=== PATIENT | male | born 1970 | race Caucasian/White ===

== ENCOUNTER 2016-02-25 12:43 | Day surgery (SDC) | payer OTHER ==
[~2016-02-25 12:43] MED LIST: CEFAZOLIN 1 GM/D5W RTU 1 GM/50 ML RTUPB IV PRN; CEFAZOLIN INJ 1 GM VIAL ONE; DEXTROSE 5%-1/2 NORMAL SALINE 1,000 ML IV PRN; KETOROLAC TROMETHAMINE 60 MG/2 ML SDV ONE; SUCCINYLCHOLINE CHLORIDE INJ 200 MG/10 ML VIAL ONE
[2016-02-25] MEDS ORDERED: LIDOCAINE 0.5% INJ-PF (5 MG/ML) 50 ML SDV ONE (13:11)
[2016-02-25] MEDS ORDERED: BACITRACIN INJ 50,000 UNIT VIAL ONE (13:12)
[2016-02-25] MEDS ORDERED: BUPIVACAINE HCL 0.25 % INJ/PF (2.5 MG/1 ML) 30 ML VIAL ONE (13:12)
[2016-02-25] MEDS ORDERED: ALBUTEROL SULFATE 0.083% NEB 2.5 MG/3 ML AMPUL NEB ONE (13:16)
[2016-02-25] MEDS ORDERED: MIDAZOLAM 2 MG/2 ML INJ ONE ×2 (13:49→14:42)
[2016-02-25] MEDS ORDERED: RINGERS SOLUTION,LACTATED 1,000 ML IV ONE (14:15)
[2016-02-25] MEDS ORDERED: LIDOCAINE 2% INJ-PF (20 MG/ML) 10 ML AMPUL ONE (14:41)
[2016-02-25] MEDS ORDERED: FENTANYL CITRATE INJ/PF 100 MCG/2 ML AMPUL ONE (14:41)
[2016-02-25] MEDS ORDERED: DEXAMETHASONE SOD PHOSPHATE INJ 4 MG/1 ML VIAL ONE (14:42)
[2016-02-25] MEDS ORDERED: PROPOFOL INJ 200 MG/20 ML VIAL IV ONE (14:42)
[2016-02-25] MEDS ORDERED: MORPHINE SULFATE 10 MG/ML INJ ONE (14:42)
[2016-02-25] MEDS ORDERED: ONDANSETRON HCL INJ/PF 4 MG/2 ML SDV ONE (14:42)
--- NOTE | 2016-02-25 17:13 | PDOC DISCHARGE SUMMARY ---
Discharge Summary (SDC) - Discharge Final Diagnosis: Right inguinal hernia post repair. Date of Surgery: 02/25/16 Discharge Date: 02/25/16 Condition: Good Treatment or Instructions: #1 activities within moderation encouraged. Activities up to the level of walking encouraged. Lifting over 10 pounds. #2 follow up in my office by appointment in about 1 week. Call for appointment. #3 the wounds covered clean and dry until office visit. #4 hold off on school/work until evaluation in office. #5 may shower in 48 hours, keep operated area as dry as possible. #6 discharge from ambulatory to when ASU criteria met. #7 medications per medication reconciliation sheet. #8 Percocet and Toradol prescriptions. Prescriptions: Ketorolac Tromethamine [Toradol 10 mg Tablet] 10 mg PO Q8HP #9 tablet Oxycodone HCl/Acetaminophen [Percocet 5-325 mg Tablet] 1 tab PO ASDIR PRN #15 tab PRN Reason: For Pain Discharge Diet: As Tolerated Respiratory Treatments at Home: Deep Breathing/Coughing Discharge Activity: No Lifting Over 10 Pounds, Walk Frequently Report the Following to Your Physician Immediately: Shortness of Breath, Unusual Bleeding
--- NOTE | 2016-02-25 17:16 | Operative Report ---
Operative Report DATE OF SURGERY: 02/25/16 PREOPERATIVE DIAGNOSIS: #1 symptomatic right inguinal hernia. POSTOPERATIVE DIAGNOSIS: Same as post repair with mesh. Resection lipoma of the cord. OPERATION: Repair of right indirect inguinal hernia with mesh. SURGEON: [facility] NURSE: none TISSUE REMOVED OR ALTERED: Lipoma of the cord COMPLICATIONS: None ESTIMATED BLOOD LOSS: 5 mL. INTRAOPERATIVE FINDINGS: Of an indirect inguinal hernias sac which was nicely reduced within the peritoneal cavity. The sac was substantial and in the cord for about 5 cm. 2 lipoma of the cord presented superiorly and laterally. These were excised facilitating closure. Was maintained using a Prolene hernia system mesh. Overall the procedure well tolerated. PROCEDURE: After obtaining informed consent and going over the procedure with [the patient and his family], he was taken to the operating room, he was anesthetized and intubated. The abdomen was prepped and draped in the usual sterile fashion. After the universal timeout, in which it was verified that the patient received IV antibiotic, the procedure commenced. A transverse incision was made in the right lower abdomen abdominal, groin area , just above the pubic tubercle. 6 cm in length.Local, regional anesthesia was infiltrated, just before incision.. Incision was made with a [15 blade scalpel] . Dissection now proceeded through the subcutaneous tissue down to the external oblique aponeurosis. The external ring was identified and the external oblique opened in the line of its fibers. The inguinal canal was thus displayed. Dissection was facilitated by the use a headlight and using loupe magnification. The spermatic cord was dissected off the pubic tubercle and surrounded with a moist [place] drain, the cremasteric fascia was now incised longitudinally revealing the contents of the spermatic cord. The sac was readily evident and this was grasped with a hemostat. It was now dissected in a retrograde fashion into the retroperitoneal space. It was now reduced within the the preperitoneal space. The preperitoneal space was now developed circumferentially. It easily accommodated a sponge which was removed. Hemostasis was checked for and ensured there in. The space between the external and internal oblique aponeuroses was now developed to accommodate the external portion of the mesh. Having done so a Prolene hernia system mesh was now folded, in the teleradiologist's approved fashion and inserted into the preperitoneal space. The internal portion was deployed flat in the preperitoneal space the external portion was unfolded and tucked beneath the external oblique. Secured with a 0 PDS suture to the internal oblique superiorly, the fascia adjacent to the pubic tubercle medially, inferiorly it was split up to the connector, the the split mesh was now used to surround the spermatic cord. It was reapproximated with a suture of 0 PDS. 0 PDS was now used to approximate the inferior border of the mesh to the shelving edge of Poupart's ligament with a single suture. Laterally the mesh was tucked beneath the external oblique. The external oblique was now reconstituted using a continuous suture of 3-0 PDS. 3-0 PDS interrupted sutures were used to approximate the subcutaneous tissues after removing the [place] drain. The skin was closed using a continuous subcuticular suture of 4-0 Monocryl reinforced with Steri-Strips over benzoin. Copies dictated operative report to Dr. Vivien Ochoa MD.
[2016-02-25] MEDS ORDERED: PROMETHAZINE HCL INJ 25 MG/1 ML VIAL IV PRN (17:19)
[2016-02-25] MEDS ORDERED: FENTANYL CITRATE INJ/PF 100 MCG/2 ML AMPUL IV PRN (17:19)
[2016-02-25] MEDS ORDERED: MORPHINE SULFATE 10 MG/ML INJ IV PRN (17:19)
[2016-02-25] MEDS ORDERED: DIPHENHYDRAMINE HCL 50 MG/ML VIAL IV PRN (17:19)
[2016-02-25] MEDS ORDERED: MEPERIDINE HCL/PF INJ 25 MG/1 ML DISP.SYRIN IV PRN (17:19)
[2016-02-25] MEDS: FENTANYL CITRATE INJ/PF 100 MCG/2 ML AMPUL ONE ×2 (17:40→17:49)
[2016-02-25] MEDS ORDERED: OXYCODONE-ACETAMINOPHEN 5-325 MG TABLET ONE (18:17)
[2016-02-25] MEDS ORDERED: OXYCODONE-ACETAMINOPHEN 5-325 MG TABLET PO ONE (18:30)
[2016-02-25 19:18] VITALS: BP 133/94
== END 2016-02-25 19:17 | disposition home or self-care (01) ==
LOC: OROUT 12:43
PROVIDERS: ATTEND Surgery
PROC: 0YU50JZ Supplement Right Inguinal Region with Synthetic Substitute, Open Approach (ICD-10-PCS; principal; 2016-02-25 13:30)
DX: K40.30 Unilateral inguinal hernia, with obstruction, without gangrene, not specified as recurrent (principal); D17.6 Benign lipomatous neoplasm of spermatic cord; F17.210 Nicotine dependence, cigarettes, uncomplicated
CPT/HCPCS: 88302 ×2; 49505; C1781; J2250; J3490 ×3; J0690; J1100; J1885; J3010; J0330; J2405; J2704; 830; J2270

== ENCOUNTER → 2017-07-17 | Outpatient (CLI) | payer OTHER ==
--- NOTE | 2017-07-17 11:57 | RADIOLOGY REPORT (SQ) ---
EXAM DESCRIPTION: FOOT LEFT COMPLETE COMPLETED DATE/TIME: 07/17/2017 11:27 am REASON FOR STUDY: LEFT FOOT PAIN COMPARISON: None. NUMBER OF VIEWS: Three views. TECHNIQUE: AP, lateral and oblique radiographic images acquired of the left foot. LIMITATIONS: None. FINDINGS: MINERALIZATION: Normal. BONES: No acute fracture or dislocation. No worrisome bone lesions. JOINTS: No effusions. SOFT TISSUES: No soft tissue swelling. No foreign body. OTHER: No other significant finding. IMPRESSION: NEGATIVE STUDY OF THE LEFT FOOT. NO RADIOGRAPHIC EVIDENCE OF ACUTE INJURY. TECHNICAL DOCUMENTATION: JOB ID: [id number] [employer]- All Rights Reserved Reading location - IP/workstation name: [email or web address]
== END ==
LOC: RAD 11:08
PROVIDERS: ATTEND Student in an Organized Health Care Education/Training Program
DX: M79.672 Pain in left foot (principal)

== ENCOUNTER → 2017-12-08 | Outpatient (CLI) | payer OTHER ==
--- NOTE | 2017-12-08 14:35 | RADIOLOGY REPORT (SQ) ---
EXAM DESCRIPTION: T SPINE AP/LAT COMPLETED DATE/TIME: 12/08/2017 2:21 pm REASON FOR STUDY: SCOLIOSIS (M41.9),BACK PAIN (M54.9) M41.9 SCOLIOSIS, UNSPECIFIED M54.9 DORSALGIA , UNSPECIFIED M25.522 PAIN IN LEFT ELBOW COMPARISON: None. NUMBER OF VIEWS: Two views. TECHNIQUE: AP and lateral radiographic images acquired of the thoracic spine. LIMITATIONS: None. FINDINGS: MINERALIZATION: Normal. ALIGNMENT: Normal. No scoliosis. VERTEBRAE: No fracture or bone lesion. Maintained height, normal segmentation. DISCS: No significant loss of height or significant narrowing. No large osteophytes. HARDWARE: None in the spine. MEDIASTINUM AND SOFT TISSUES: Normal heart size and aortic contour. No soft tissue abnormality. VISUALIZED LUNG BATRES: Clear. OTHER: No other significant finding. IMPRESSION: NO SIGNIFICANT RADIOGRAPHIC FINDING IN THE THORACIC SPINE. TECHNICAL DOCUMENTATION: JOB ID: [id number] [employer]- All Rights Reserved Reading location - IP/workstation name: [email or web address]
--- NOTE | 2017-12-08 14:36 | RADIOLOGY REPORT (SQ) ---
EXAM DESCRIPTION: CERV SP 4 OR 5 VIEWS COMPLETED DATE/TIME: 12/08/2017 2:21 pm REASON FOR STUDY: SCOLIOSIS (M41.9),BACK PAIN (M54.9) M41.9 SCOLIOSIS, UNSPECIFIED M54.9 DORSALGIA , UNSPECIFIED M25.522 PAIN IN LEFT ELBOW COMPARISON: None. NUMBER OF VIEWS: Five views. TECHNIQUE: AP, lateral, obliques and odontoid radiographic images acquired of the cervical spine. LIMITATIONS: None. FINDINGS: MINERALIZATION: Normal. ALIGNMENT: There is straightening of the normal cervical lordosis. VERTEBRAE: Vertebral bodies of normal height. DISCS: No significant osteophytes or sclerosis. Disc height maintained. FORAMINA: No osteophytes or foraminal narrowing. LATERAL AND POSTERIOR ELEMENTS: Facets, lateral masses and spinous processes without significant find ings. HARDWARE: None in the spine. SOFT TISSUES: No masses or calcifications. Lung apices clear. OTHER: No other significant finding. IMPRESSION: NO SIGNIFICANT RADIOGRAPHIC FINDING IN THE CERVICAL SPINE. TECHNICAL DOCUMENTATION: JOB ID: [id number] [employer]- All Rights Reserved Reading location - IP/workstation name: [email or web address]
--- NOTE | 2017-12-08 14:40 | RADIOLOGY REPORT (SQ) ---
EXAM DESCRIPTION: ELBOW LEFT OVER 2 VIEWS COMPLETED DATE/TIME: 12/08/2017 2:21 pm REASON FOR STUDY: LEFT ELBOW PAIN (M25.522) M41.9 SCOLIOSIS, UNSPECIFIED M54.9 DORSALGIA, UNSPECIF IED M25.522 PAIN IN LEFT ELBOW COMPARISON: None. NUMBER OF VIEWS: Four views. TECHNIQUE: AP, lateral, and both oblique radiographic images acquired of the left elbow. LIMITATIONS: None. FINDINGS: MINERALIZATION: Normal. BONES: No acute fracture or dislocation. No worrisome bone lesions. JOINT: No effusion. SOFT TISSUES: No soft tissue swelling. No foreign body. OTHER: No other significant finding. IMPRESSION: NEGATIVE STUDY OF THE LEFT ELBOW. NO RADIOGRAPHIC EVIDENCE OF ACUTE INJURY. TECHNICAL DOCUMENTATION: JOB ID: [id number] [employer]- All Rights Reserved Reading location - IP/workstation name: [email or web address]
--- NOTE | 2017-12-08 14:41 | RADIOLOGY REPORT (SQ) ---
EXAM DESCRIPTION: L SPINE WHOLE COMPLETED DATE/TIME: 12/08/2017 2:21 pm REASON FOR STUDY: SCOLIOSIS (M41.9),BACK PAIN (M54.9) M41.9 SCOLIOSIS, UNSPECIFIED M54.9 DORSALGIA , UNSPECIFIED M25.522 PAIN IN LEFT ELBOW COMPARISON: None. NUMBER OF VIEWS: Five views including obliques. TECHNIQUE: AP, lateral, oblique, and sacral radiographic images acquired of the lumbar spine. LIMITATIONS: None. FINDINGS: MINERALIZATION: Normal. SEGMENTATION: Normal. No transitional anatomy. ALIGNMENT: Minimal scoliosis. VERTEBRAE: Maintained height. No fracture or worrisome bone lesion. DISCS: L5-S1 disc space narrowing with small marginal osteophytes. POSTERIOR ELEMENTS: Pedicles and facets are intact. No pars defect or posterior arch defects. HARDWARE: None in the spine. PARASPINAL SOFT TISSUES: Normal. PELVIS: Intact as visualized. No fractures or worrisome bone lesions. SI joints intact. OTHER: No other significant finding. IMPRESSION: Minimal scoliosis. Degenerative disc changes. Mild spondylosis. TECHNICAL DOCUMENTATION: JOB ID: [id number] [employer] All Rights Reserved Reading location - IP/workstation name: [email or web address]
== END ==
LOC: RAD 13:16
PROVIDERS: ATTEND Student in an Organized Health Care Education/Training Program
DX: M25.522 Pain in left elbow (principal); M79.89 Other specified soft tissue disorders; M54.9 Dorsalgia, unspecified; M41.86 Other forms of scoliosis, lumbar region; M47.896 Other spondylosis, lumbar region
CPT/HCPCS: 72050; 72070; 72110